=== PATIENT | female | born 2000 | race Caucasian/White ===

== ENCOUNTER 2023-11-30 18:47 | Inpatient (IN) | payer MEDICAID ==
[2023-11-30] MEDS ORDERED: Methylergonovine 0.2 MG/1 ML Amp IM PRN (20:18)
[2023-11-30] MEDS ORDERED: Tranexamic Acid IN NACL,ISO-OS 1,000 MG in Premix Bag 1 BAG IV PRN (20:18)
[2023-11-30] MEDS ORDERED: Lidocaine 1% 50 ML MDV INJECT PRN (20:18)
[2023-11-30] MEDS ORDERED: Sodium Chloride 0.9% 10 ML Syringe FLUSH PRN (20:18)
[2023-11-30] MEDS ORDERED: Misoprostol 200 MCG Tab PO PRN (20:18)
[2023-11-30] MEDS ORDERED: Carboprost Tromethamine 250 MCG/1 mL Vial IM PRN (20:18)
[2023-11-30] MEDS ORDERED: Water For Irrigation,Sterile 1,000 ML Container IRR PRN (20:18)
[2023-11-30] MEDS ORDERED: Sodium Chloride 0.9% 2.5 ML Syringe FLUSH PRN (20:18)
[2023-11-30] MEDS ORDERED: Terbutaline 1 MG/ML SDV SUBCUT PRN (20:18)
[2023-11-30] MEDS ORDERED: Dinoprostone 10 MG Insert VAG PRN (20:18)
[2023-11-30] MEDS ORDERED: Sodium Chloride 0.9% 20 ML SDV IV PRN (20:18)
[2023-11-30] MEDS ORDERED: Oxytocin/0.9 % Sodium Chloride 30 UNIT/500 ML BAG IV SCH ×2 (20:30)
[2023-11-30 20:58] LABS: HEMATOCRIT 33.8 % (37.0-47.0); HEMOGLOBIN 11.5 g/dL (12.0-16.0); MEAN CORPUSCULAR HEMOGLOBIN 29.6 pg (28.0-32.0); MEAN CORPUSCULAR VOLUME 86.9 fL (83.0-99.0); MEAN PLATELET VOLUME 12.1 fL (9.4-12.3); PLATELET COUNT,PLT 225 K/uL (150-400); RED BLOOD CELL COUNT 3.89 M/uL (4.10-5.30); WHITE BLOOD CELL COUNT,WBC 9.19 K/uL (3.9-11.3)
[2023-11-30] MEDS: Lactated Ringers 1,000 ML IV SCH (21:00)
[2023-11-30] MEDS: Misoprostol 50 MCG (1/2 of 100 MCG) Tab VAG ONE (21:10)
[2023-11-30] MEDS: Ampicillin 2 GM in Sodium Chloride 0.9% 100 ML IV ONE (21:10)
[2023-11-30] MEDS: Butorphanol 2 MG/ML SDV IVPUSH PRN (23:42)
[2023-12-01] MEDS ORDERED: Ampicillin 1 GM in Sodium Chloride 0.9% 50 ML IV SCH (00:30)
[2023-12-01] MEDS: Ampicillin 1 GM in Sodium Chloride 0.9% 50 ML IV SCH (01:02)
[2023-12-01] MEDS: Ondansetron 4 MG/2 ML SDV IVPUSH PRN (07:26)
[2023-12-01] MEDS: Oxytocin/0.9 % Sodium Chloride 30 UNIT/500 ML BAG IV SCH (12:05)
[2023-12-01] MEDS ORDERED: Bupivacaine 0.5% 10 ML SDV ONE (12:29)
[2023-12-01] MEDS ORDERED: Phenylephrine HCl In 0.9% NaCl 1 MG/10 ML Syringe ONE (12:30)
[2023-12-01] MEDS: Ropivacaine HCl/PF 200 ML ONE (12:51)
[2023-12-01] MEDS ORDERED: droPERidol 5 MG/2 ML SDV IVPUSH PRN (12:53)
[2023-12-01] MEDS ORDERED: Albuterol 0.083% 2.5 MG/3 ML Neb Soln NEB PRN (12:53)
[2023-12-01] MEDS ORDERED: Morphine 2 MG/ML SYRINGE IVPUSH PRN (12:53)
[2023-12-01] MEDS ORDERED: Phenylephrine HCl In 0.9% NaCl 1 MG/10 ML Syringe IVPUSH PRN (12:53)
[2023-12-01] MEDS ORDERED: ePHEDrine 50 MG/ML SDV IVPUSH PRN (12:53)
[2023-12-01] MEDS ORDERED: fentaNYL 50 MCG/ML SDV IVPUSH PRN (12:53)
[2023-12-01] MEDS ORDERED: Naloxone 0.4 MG/ML SDV IVPUSH PRN (12:53)
[2023-12-01] MEDS ORDERED: Metoclopramide 10 MG/2 ML SDV IVPUSH PRN (12:53)
[2023-12-01] MEDS ORDERED: Ondansetron 4 MG/2 ML SDV IVPUSH PRN (12:53)
[2023-12-01] MEDS ORDERED: HYDROmorphone 1 MG/ML Syringe IVPUSH PRN (12:53)
[2023-12-01] MEDS ORDERED: ePHEDrine 50 MG/ML SDV IM PRN (12:54)
[2023-12-01] MEDS ORDERED: Bupivacaine 0.5% 10 ML SDV INJECT ONE (12:54)
[2023-12-01] MEDS ORDERED: dexmedeTOMIDine HCl 200 MCG/2 ML SDV EPIDUR SCH (13:00)
[2023-12-01] MEDS ORDERED: Ropivacaine HCl/PF 400 MG in Premix Bag 1 BAG EPIDUR SCH (13:00)
[2023-12-01] MEDS ORDERED: Docusate Sodium 100 MG Cap PO PRN (20:12)
[2023-12-01] MEDS ORDERED: Lanolin 100% Cream 7 GM Tube TOP PRN (20:12)
[2023-12-01] MEDS: Acetaminophen 500 MG Tab PO PRN (23:54)
[2023-12-01] MEDS: Ibuprofen 800 MG Tab PO PRN (23:54)
[2023-12-01] MEDS: Witch Hazel Medicated Pads 40/Jar TOP PRN (23:55)
[2023-12-01] MEDS: Benzocaine/Menthol 20%-0.5% Spray 78 GM Cannister TOP PRN (23:55)
[2023-12-02] MEDS: Docusate Sodium 100 MG Cap PO SCH (02:55)
[2023-12-02] MEDS: oxyCODONE 5 MG Tab PO PRN (03:17)
[2023-12-02 06:00] LABS: HEMATOCRIT 28.8 % (37.0-47.0); HEMOGLOBIN 9.6 g/dL (12.0-16.0)
[2023-12-02] MEDS: Escitalopram 10 MG Tab PO SCH (13:36)
== END 2023-12-03 17:09 | disposition home or self-care (01) | DRG 768 ==
LOC: MW.OB 18:47 → OBSVTOIN 12-01 18:47 → MW.OB 12-01 23:57
PROVIDERS: ADMIT Obstetrics & Gynecology; ATTEND Obstetrics & Gynecology
PROC: 10E0XZZ Delivery of Products of Conception, External Approach (ICD-10-PCS; principal; 2023-12-01)
PROC: 0DQR0ZZ Repair Anal Sphincter, Open Approach (ICD-10-PCS; 2023-12-01)
PROC: 0W8NXZZ Division of Female Perineum, External Approach (ICD-10-PCS; 2023-12-01)
PROC: 3E0R3BZ Introduction of Anesthetic Agent into Spinal Canal, Percutaneous Approach (ICD-10-PCS; 2023-12-01)
PROC: 00HU33Z Insertion of Infusion Device into Spinal Canal, Percutaneous Approach (ICD-10-PCS; 2023-12-01)
PROC: 30233N1 Transfusion of Nonautologous Red Blood Cells into Peripheral Vein, Percutaneous Approach (ICD-10-PCS; 2023-12-02)
DX: O36.5930 Maternal care for other known or suspected poor fetal growth, third trimester, not applicable or unspecified (principal); Z3A.39 39 weeks gestation of pregnancy; Z37.0 Single live birth; O70.20 Third degree perineal laceration during delivery, unspecified; O99.824 Streptococcus B carrier state complicating childbirth; O99.344 Other mental disorders complicating childbirth; O69.81X0 Labor and delivery complicated by cord around neck, without compression, not applicable or unspecified; F32.A Depression, unspecified
CPT/HCPCS: 01967; 36415; 51702; 59025; 59409; 85014; 85018; 85027; 85460; 86592; 86850; 86900; 86901; A9270-GY; J0290; J0595; J0665; J2371; J2405; J2590; J2790; J2795; J3490; J7120